=== PATIENT | male | born 1955 | race Caucasian/White ===

== ENCOUNTER → 2017-07-26 08:42 | Outpatient (CLI) | payer OTHER, SELFPAY | PROVIDERS: PCP Family Medicine; Visit Provider Specialist | DX: N40.1 Benign prostatic hyperplasia with lower urinary tract symptoms (principal) | CPT/HCPCS: 36415; 84153 ==

== ENCOUNTER → 2018-10-06 07:22 | Outpatient (CLI) | payer OTHER, SELFPAY ==
[2018-10-06 09:17] LABS: Prostate Specific Antigen 1.21 ng/mL (0.10-4.00)
== END ==
PROVIDERS: PCP Family Medicine; Visit Provider Specialist
DX: N40.1 Benign prostatic hyperplasia with lower urinary tract symptoms (principal)
CPT/HCPCS: 36415; 84153

== ENCOUNTER → 2018-11-21 08:17 | Outpatient (CLI) | payer OTHER, SELFPAY ==
[2018-11-21 08:59] LABS: Hemoglobin A1C% w Est Avg Glu 5.7 % (4.0-6.0)
[2018-11-21 09:06] LABS: Alanine Aminotransferase 26 IU/L (21-72); Albumin 4.4 g/dL (3.5-5.0); Albumin Globulin Ratio 1.5 (1.0-2.8); Alkaline Phosphatase 52 U/L (38-126); Aspartate Aminotransferase 23 IU/L (17-59); BUN Creatinine Ratio 16.9 (6-22); Bilirubin Total 0.7 mg/dL (0.2-1.3); Blood Urea Nitrogen 22 mg/dL (9-20); Calcium 9.7 mg/dL (8.4-10.2); Carbon Dioxide 29 mmol/L (22-32); Chloride 102 mmol/L (98-107); Cholesterol 247 mg/dL (140-199); Estimated Glomerular Filt Rate 55.9 mL/min (>60); Globulin 2.9 g/dL (1.7-4.1); Glucose 120 mg/dL (80-110); HDL Cholesterol 75 mg/dL (40-60); HEMOLYSIS < 15 (0-50); LDL Cholesterol Calculated 150 mg/dL (<100); Potassium 4.9 mmol/L (3.4-5.1); Sodium 140 mmol/L (137-145); Total Protein 7.3 g/dL (6.3-8.2); Triglycerides 109 mg/dL (35-150); VLDL Cholesterol Calculated 22 mg/dL (2-30)
== END ==
PROVIDERS: PCP Family Medicine; Visit Provider Family Medicine
DX: E11.65 Type 2 diabetes mellitus with hyperglycemia (principal)
CPT/HCPCS: 36415; 80053; 80061; 83036

== ENCOUNTER → 2019-03-10 07:11 | Outpatient (CLI) | payer OTHER, SELFPAY ==
[2019-03-10 08:31] LABS: Albumin 4.3 g/dL (3.5-5.0)
[2019-03-10 09:03] LABS: Prostate Specific Antigen 1.51 ng/mL (0.10-4.00)
[2019-03-10 09:05] LABS: Testosterone 386 ng/dL (71.8-623)
[2019-03-13 07:12] LABS: Sex Hormone Binding Globulin 52 nmol/L (22-77)
[2019-03-17 18:37] LABS: Testosterone, Free 1.33 ng/dL
== END ==
PROVIDERS: PCP Family Medicine; Visit Provider Specialist
DX: R68.82 Decreased libido (principal)
CPT/HCPCS: 36415; 82040; 84153; 84270; 84402; 84403

== ENCOUNTER → 2019-12-06 06:53 | Outpatient (CLI) | payer OTHER, SELFPAY ==
[2019-12-06 08:21] LABS: Add Manual Diff / Slide Review NO; Basophils Absolute Auto 100 /uL (0-100); Eosinophils Absolute Auto 100 /uL (0-450); Eosinophils Percent Auto 2.1 % (2-4); Hematocrit 44.1 % (41-53); Hemoglobin 14.8 g/dL (13.5-17.5); Lymphocytes Absolute Auto 2200 /uL (1100-4500); Lymphocytes Percent Auto 33.7 % (25-40); Mean Corpuscular HGB Conc 33.7 % (30-36); Mean Corpuscular Hemoglobin 30.3 PG (26-34); Monocytes Absolute Auto 500 /uL (0-900); Monocytes Percent Auto 8.3 % (3-14); Neutrophils Absolute Auto 3600 /uL (1500-7000); Neutrophils Percent Auto 54.9 % (50-75); Platelet Count 235 X10^3/uL (150-400); Red Cell Distribution Width 14.6 % (11.6-14.8); White Blood Cell Count 6.5 X10^3/uL (4.5-11.0)
[2019-12-06 08:41] LABS: Alanine Aminotransferase 25 IU/L (<50); Albumin 4.3 g/dL (3.5-5.0); Albumin Globulin Ratio 1.3 (1.0-2.8); Alkaline Phosphatase 46 U/L (38-126); Aspartate Aminotransferase 28 IU/L (17-59); BUN Creatinine Ratio 20.8 (6-22); Bilirubin Total 0.7 mg/dL (0.2-1.3); Blood Urea Nitrogen 22 mg/dL (9-20); Calcium 9.3 mg/dL (8.4-10.2); Carbon Dioxide 29 mmol/L (22-32); Chloride 104 mmol/L (98-107); Cholesterol 229 mg/dL (140-199); Estimated Glomerular Filt Rate > 60.0 mL/min (>60); Globulin 3.2 g/dL (1.7-4.1); Glucose 112 mg/dL (80-110); HDL Cholesterol 81 mg/dL (40-60); HEMOLYSIS < 15 (0-50); LDL Cholesterol Calculated 126 mg/dL (<100); Potassium 3.9 mmol/L (3.4-5.1); Sodium 139 mmol/L (137-145); Total Protein 7.5 g/dL (6.3-8.2); Triglycerides 112 mg/dL (35-150)
[2019-12-06 08:43] LABS: Hemoglobin A1C% w Est Avg Glu 6.3 % (4.0-6.0)
[2019-12-06 09:12] LABS: Prostate Specific Antigen 2.08 ng/mL (0.10-4.00)
== END ==
PROVIDERS: PCP Internal Medicine; Referring Provider Internal Medicine; Visit Provider Internal Medicine
DX: E78.2 Mixed hyperlipidemia (principal); N40.1 Benign prostatic hyperplasia with lower urinary tract symptoms; E11.9 Type 2 diabetes mellitus without complications
CPT/HCPCS: 36415; 80053; 80061; 83036; 84153; 85025

== ENCOUNTER → 2020-05-21 06:55 | Outpatient (CLI) | payer OTHER, SELFPAY ==
[2020-05-21 08:53] LABS: Creatinine Urine Random 127.1 mg/dL
[2020-05-21 08:57] LABS: Microalbumi Creatinin Ratio Ur 5.5 ug/mg CR (<30); Microalbumin Urine Random 0.7 mg/dL (0-1.6)
[2020-05-21 09:07] LABS: Hemoglobin A1C% w Est Avg Glu 6.2 % (4.0-6.0)
== END ==
PROVIDERS: PCP Internal Medicine; Referring Provider Internal Medicine; Visit Provider Internal Medicine
DX: E11.9 Type 2 diabetes mellitus without complications (principal); R03.0 Elevated blood-pressure reading, without diagnosis of hypertension
CPT/HCPCS: 36415; 82043; 82570; 83036

== ENCOUNTER → 2020-06-11 07:00 | Outpatient (CLI) | payer OTHER, SELFPAY ==
[2020-06-11 09:32] LABS: Prostate Specific Antigen 2.09 ng/mL (0.10-4.00)
== END ==
PROVIDERS: PCP Internal Medicine; Referring Provider Specialist; Visit Provider Specialist
DX: N40.0 Benign prostatic hyperplasia without lower urinary tract symptoms (principal)
CPT/HCPCS: 36415; 84153

== ENCOUNTER → 2021-02-17 06:58 | Outpatient (CLI) | payer OTHER, SELFPAY ==
[2021-02-17 09:54] LABS: Prostate Specific Antigen 2.17 ng/mL (0.10-4.00)
== END ==
PROVIDERS: PCP Internal Medicine; Referring Provider Specialist; Visit Provider Specialist
DX: N13.8 Other obstructive and reflux uropathy (principal); N40.1 Benign prostatic hyperplasia with lower urinary tract symptoms
CPT/HCPCS: 36415; 84153

== ENCOUNTER → 2021-11-04 10:39 | Outpatient (CLI) | payer OTHER, SELFPAY ==
--- NOTE | 2021-11-04 10:42 | DI.RAD.S_ITS ---
PROCEDURE: XR CERVICAL SPINE 2V OR 3V INDICATIONS: BACK PAIN TECHNIQUE: Three views of the cervical spine were acquired. COMPARISON: [facility], , C-SPINE WITHOUT CONTRAST, 11/02/2012, 17:38. FINDINGS: Bones: No acute fractures or dislocations to the T1 level. The lateral masses of C1 appear intact on the odontoid view. No suspicious bony lesions. Multilevel disc space narrowing degenerative endplate changes are seen that are most prominent at the C6-7 disc space level. Multilevel uncovertebral joint and facet hypertrophy. Soft tissues: No prevertebral soft tissue swelling. IMPRESSION: Multilevel spondylosis. Further evaluation could be considered with cervical spine MRI if indicated clinically. Dictated by: Jason Barillas M.D. on 11/04/2021 at 12:44 Approved by: Jason Barillas M.D. on 11/04/2021 at 12:46
--- NOTE | 2021-11-04 10:53 | DI.RAD.S_ITS ---
PROCEDURE: XR THORACIC SPINE 3V INDICATIONS: BACK PAIN TECHNIQUE: 3 views of the thoracic spine were acquired. COMPARISON: None. FINDINGS: Bones: No acute fractures or dislocations. No suspicious bony lesions. 12 pairs of ribs are noted, and appear intact where visualized. Multilevel disc space narrowing degenerative endplate changes. Soft tissues: No paravertebral stripe thickening. Surgical clips are seen in the right upper quadrant of the abdomen. IMPRESSION: Mild multilevel spondylosis. No acute osseous abnormality. Dictated by: Jason Barillas M.D. on 11/04/2021 at 12:46 Approved by: Jason Barillas M.D. on 11/04/2021 at 12:47
== END ==
PROVIDERS: PCP Internal Medicine; Referring Provider Internal Medicine; Visit Provider Internal Medicine
DX: M54.6 Pain in thoracic spine (principal); M47.814 Spondylosis without myelopathy or radiculopathy, thoracic region; M47.812 Spondylosis without myelopathy or radiculopathy, cervical region
CPT/HCPCS: 72040; 72072

== ENCOUNTER → 2022-02-19 07:37 | Outpatient (CLI) | payer OTHER, SELFPAY ==
[2022-02-19 10:21] LABS: Prostate Specific Antigen 2.18 ng/mL (0.10-4.00)
== END ==
PROVIDERS: PCP Internal Medicine; Referring Provider Specialist; Visit Provider Specialist
DX: N13.8 Other obstructive and reflux uropathy (principal); N40.1 Benign prostatic hyperplasia with lower urinary tract symptoms
CPT/HCPCS: 36415; 84153

== ENCOUNTER 2022-03-12 11:38 | Emergency (ER) | payer OTHER, SELFPAY ==
[2022-03-12] VITALS (11 sets, daily range): BP systolic 158–193; BP diastolic 75–86; PULSE 48–76; RESP 14–20; O2SAT 91–100; BMI 29.7
--- NOTE | 2022-03-12 11:40 | DI.RAD.S_ITS ---
PROCEDURE: XR CHEST 1V INDICATIONS: chest pain TECHNIQUE: One view of the chest was acquired. COMPARISON: [facility], , CHEST 2 VIEW, 11/17/2011, 7:37. FINDINGS: Surgical changes and devices: None. Lungs and pleura: Lungs are clear. No pleural effusions or pneumothorax. Mediastinum: Mediastinal contours appear normal. Heart size is normal. Bones and chest wall: No suspicious bony lesions. Overlying soft tissues appear unremarkable. IMPRESSION: No acute cardiopulmonary disease. Dictated by: Rosibel Medellin M.D. on 03/12/2022 at 11:39 Approved by: Rosibel Medellin M.D. on 03/12/2022 at 11:40
[2022-03-12 12:00] LABS: Add Manual Diff / Slide Review NO; Basophils Absolute Auto 0 /uL (0-100); Basophils Percent Auto 0.7 % (0-2); Eosinophils Absolute Auto 100 /uL (0-450); Eosinophils Percent Auto 2.2 % (2-4); Hematocrit 43.8 % (41-53); Hemoglobin 14.5 g/dL (13.5-17.5); Lymphocytes Absolute Auto 2100 /uL (1100-4500); Mean Corpuscular HGB Conc 33.1 % (30-36); Mean Corpuscular Hemoglobin 29.9 PG (26-34); Mean Corpuscular Volume 90.4 fL (80-100); Monocytes Absolute Auto 600 /uL (0-900); Monocytes Percent Auto 8.8 % (3-14); Neutrophils Absolute Auto 3400 /uL (1500-7000); Neutrophils Percent Auto 54.3 % (50-75); Platelet Count 239 X10^3/uL (150-400); Red Blood Cell Count 4.84 X10^6/uL (4.5-5.9); Red Cell Distribution Width 14.5 % (11.6-14.8); White Blood Cell Count 6.3 X10^3/uL (4.5-11.0)
[2022-03-12 12:10] LABS: Alanine Aminotransferase 21 IU/L (<50); Albumin 4.3 g/dL (3.5-5.0); Albumin Globulin Ratio 1.2 (1.0-2.8); Alkaline Phosphatase 44 U/L (38-126); Aspartate Aminotransferase 22 IU/L (17-59); BUN Creatinine Ratio 18.5 (6-22); Bilirubin Total 0.6 mg/dL (0.2-1.3); Blood Urea Nitrogen 20 mg/dL (9-20); Calcium 8.9 mg/dL (8.4-10.2); Carbon Dioxide 26 mmol/L (22-32); Chloride 104 mmol/L (98-107); Creatine Kinase 114 U/L (55-170); Estimated Glomerular Filt Rate > 60 mL/min (>60); Globulin 3.5 g/dL (1.7-4.1); Glucose 113 mg/dL (80-110); Lipase 138 U/L (23-300); Magnesium 1.7 mg/dL (1.6-2.3); Potassium 3.9 mmol/L (3.4-5.1); Sodium 140 mmol/L (137-145); Total Protein 7.8 g/dL (6.3-8.2)
[2022-03-12 12:21] LABS: Troponin I < 0.012 ng/mL (0.01-0.034)
[2022-03-12 12:23] LABS: Prothrombin Time 11.4 SECONDS (10.1-12.7)
[2022-03-12 12:26] LABS: PTT Partial Thromboplastin Tim 28 SECONDS (26-36)
[2022-03-12 12:37] LABS: CKMB % Relative Index 0.9 % (1.5-5.0); Creatine Kinase MB 1.06 ng/mL (<2.37); HEMOLYSIS 21 (0-50)
[2022-03-12 14:02] LABS: D Dimer 493 ng/ml (<500)
[2022-03-12 14:09] LABS: NT-proBNP (BNP-Adult 18+) 82 pg/mL (<125)
[2022-03-12 14:34] LABS: Troponin I < 0.012 ng/mL (0.01-0.034)
--- NOTE | 2022-03-12 16:51 | ED_ITS ---
HPI - Chest Pain General Chief Complaint: Chest Pain Stated Complaint: chest pain Time Seen by Provider: 03/12/22 13:42 Source: patient Mode of arrival: Ambulatory Limitations: no limitations History of Present Illness HPI narrative: This is a 67-year-old male with history of hypertension, dyslipidemia, BPH and prior pulmonary emboli, patient used to have an IVC filter but has since been removed and is not currently on any anticoagulation. Patient states this morning about 1125 he is walking out of his bedroom when he had a sudden sharp pain on the left side of his back from back to front that he states was quite intense. It is not resolved but has significantly improved only localized to that area. Does not radiate to the neck arm belly or elsewhere. Patient denies any shortness of breath, no lightheadedness or passing out, no nausea or vomiting, no issues with bowel movements, urination. No rash or skin changes no blisters. Patient states he has not appreciate any exacerbating or alleviating factors. He defers anything for pain. He is a history of pulmonary in the past, states he would slipped and fallen developed a DVT and subsequent pulmonary emboli. He had 6-7 pulmonary emboli had a IVC filter placed and was anticoagulated for about 5-6 months, treatment occurred at [place] in [facility]. Subsequently was stopped he did have vein stripping in his legs and is no longer anticoagulated. He takes losartan, fenofibrate, tamsulosin. He is had prior cholecystectomy and elbow and shoulder surgery. Patient states he has not had any new swelling legs, no recent long-distance travel or injuries that he appreciates. No activities that would have caused his pain. Related Data Home Medications Medication Instructions Recorded Confirmed fenofibrate nanocrystallized 48 mg 48 mg PO DAILY 03/15/20 02/23/22 tablet multivitamin 1 tab PO DAILY 03/15/20 02/23/22 omega-3-dha 120 mg-epa 180 mg-fish cap PO 03/15/20 02/23/22 oil-vitamin D3 1,000 unit capsule losartan 50 mg tablet 50 mg PO DAILY 02/20/21 02/23/22 Previous Rx's Medication Instructions Recorded tamsulosin 0.4 mg capsule (Flomax) 0.4 mg PO QDAY #90 caps 02/28/21 Allergies Allergy/AdvReac Type Severity Reaction Status Date / Time Xehorcg-GOU-MuQ Reductase Allergy Severe SLURRED Verified 03/12/22 11:41 Inhibitor SPEECH, [RKNLCHE-[id number] REDUCTASE OUT OF IT INHIBITOR] hydrocodone [HYDROCODONE] AdvReac Intermediate NAUSEA Verified 03/12/22 11:41 Review of Systems Review of Systems ROS Unobtainable: All systems reviewed & are unremarkable except as noted in HPI and below Patient History Medical History BPH w urinary obs/LUTS 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 Surgical History History of appendectomy History of cholecystectomy History of circumcision History of elbow surgery History of shoulder surgery Family History Mother Cancer Stroke Coronary artery disease Diabetes mellitus Hypertension Inflammatory bowel disease Father Hypertension Social History marital status: number of children: 3 occupational status: employed Smoking Status: Never smoker alcohol intake: never caffeine: Yes Smoking Status: Never smoker alcohol intake frequency: holidays/special occasions only Substance Use Type: does not use Exam Narrative Exam Narrative: GENERAL: Alert and oriented x three, male in mild distress. HEENT: Head normocephalic, atraumatic, EOMI, pupils reactive, face symmetric, moist mucous membranes NECK: Supple, full range of motion CARDIOVASCULAR: Regular rate and rhythm without murmurs, rubs or gallops. No reproducible chest pain. No swelling of extremities. RESPIRATORY: Breath sounds equal bilaterally, no wheezes rales or rhonchi. No tachypnea, no accessory muscle use. ABDOMEN: Soft, nontender. Normoactive bowel sounds all 4 quadrants. No guarding or rebound, rigidity, no mass : No CVA tenderness BACK: No cervical, thoracic or lumbar vertebral point tenderness. Patient has normal range of motion. EXTREMITIES: Normal range of motion, no clubbing or edema. Neurovascularly intact NEUROLOGICAL: Cranial nerves II through XII grossly intact. Moving all extremities SKIN: Warm, dry, no petechiae, no rashes or lesions. Initial Vital Signs Initial Vital Signs: Vital Signs Pulse Rate 76 03/12/22 11:41 Respiratory Rate 15 03/12/22 11:41 Blood Pressure 193/86 H 03/12/22 11:41 Pulse Oximetry 99 03/12/22 11:41 Oxygen Delivery Method 03/12/22 11:41 Scores HEART Score Heart Score history: Slightly Suspicious Heart Score EKG: Normal Heart Score Age: > or = 65 years old Heart Score risk factors: 1-2 risk factors Heart Score troponin: < or = to normal limit Heart Score Total: 3 Wells' Criteria for PE Clinical signs and symptoms of DVT: No PE is #1 Dx or equally likely: Yes Heart rate > 100: No Immobilization at least 3 days or surg in previous 4 weeks: No History of PE or DVT: Yes Hemoptysis: No Malignancy w/Treatment within 6 months or palliative: No Wells' PE Score total: 4.5 Course Orders Ordered: ED Orders 03/12/22 11:40 XR chest 1V Stat 03/12/22 11:44 Complete Blood Count AUTO DIFF Stat Comprehensive Metabolic Panel Stat Lipase Stat Magnesium Stat Partial Thromboplastin Time Stat Prothrombin Time INR Stat Troponin & CK Cardiac Panel Stat 03/12/22 11:46 EKG-12 Lead Stat 03/12/22 11:49 BNP [NT-proBNP (BNP-Adult 18+)] Stat D Dimer Stat 03/12/22 14:05 Trop I [Troponin I] Stat 03/12/22 16:13 EKG-12 Lead Stat 03/12/22 17:06 CT angio chest PE protocol Stat Vital Signs Vital signs: Vital Signs - 8 hr 03/12/22 11:41 03/12/22 16:25 03/12/22 16:26 Pulse Rate 76 56 L 56 L Respiratory Rate 15 Blood Pressure 193/86 H Pulse Oximetry 99 99 99 Oxygen Delivery Method Room Air 03/12/22 16:26 03/12/22 16:30 03/12/22 16:30 Pulse Rate 48 L Respiratory Rate 15 Blood Pressure 166/76 H 158/75 H Pulse Oximetry 99 Oxygen Delivery Method Room Air 03/12/22 17:00 03/12/22 17:01 03/12/22 17:01 Pulse Rate 53 L 54 L Respiratory Rate 18 20 Blood Pressure 187/86 H Pulse Oximetry 99 99 Oxygen Delivery Method 03/12/22 17:30 03/12/22 18:00 03/12/22 18:30 Pulse Rate 57 L 51 L 48 L Respiratory Rate 20 17 14 Blood Pressure Pulse Oximetry 96 97 97 Oxygen Delivery Method 03/12/22 19:02 03/12/22 19:03 03/12/22 19:03 Pulse Rate 50 L Respiratory Rate Blood Pressure 183/80 H Pulse Oximetry 91 100 Oxygen Delivery Method Room Air MDM - Chest Pain Lab Data 03/12/22 11:44 03/12/22 11:44 Labs: Lab Results 03/12/22 03/12/22 03/12/22 Range/Units 11:44 11:44 11:44 WBC 6.3 (4.5-11.0) X10^3/uL RBC 4.84 (4.5-5.9) X10^6/uL Hgb 14.5 (13.5-17.5) g/dL Hct 43.8 (41-53) % MCV 90.4 (80-100) fL MCH 29.9 (26-34) PG MCHC 33.1 (30-36) % RDW 14.5 (11.6-14.8) % Plt Count 239 (150-400) X10^3/uL Neut % (Auto) 54.3 (50-75) % Lymph % (Auto) 34.0 (25-40) % [facility] % (Auto) 8.8 (3-14) % Eos % (Auto) 2.2 (2-4) % Baso % (Auto) 0.7 (0-2) % Neut # (Auto) 3400 (3365-6290) /uL Lymph # (Auto) 2100 (1288-3110) /uL [facility] # (Auto) 600 (0-900) /uL Eos # (Auto) 100 (0-450) /uL Baso # (Auto) 0 (0-100) /uL PT 11.4 (10.1-12.7) SECONDS INR 1.0 (0.9-1.3) APTT 28 (26-36) SECONDS D-Dimer (<500) ng/ml Sodium 140 (137-145) mmol/L Potassium 3.9 (3.4-5.1) mmol/L Chloride 104 (98-107) mmol/L Carbon Dioxide 26 (22-32) mmol/L BUN 20 (9-20) mg/dL Creatinine 1.08 (0.66-1.25) mg/dL Estimated GFR > 60 (>60) mL/min BUN/Creatinine Ratio 18.5 (6-22) Glucose 113 H (80-110) mg/dL Calcium 8.9 (8.4-10.2) mg/dL Magnesium 1.7 (1.6-2.3) mg/dL Total Bilirubin 0.6 (0.2-1.3) mg/dL AST 22 (17-59) IU/L ALT 21 (<50) IU/L Alkaline Phosphatase 44 (38-126) U/L Total Creatine Kinase 114 (55-170) U/L CK-MB (CK-2) 1.06 (<2.37) ng/mL CK-MB (CK-2) Rel Index 0.9 L (1.5-5.0) % Troponin I < 0.012 (0.01-0.034) ng/mL NT-Pro-B Natriuret Pep (<125) pg/mL Total Protein 7.8 (6.3-8.2) g/dL Albumin 4.3 (3.5-5.0) g/dL Globulin 3.5 (1.7-4.1) g/dL Albumin/Globulin Ratio 1.2 (1.0-2.8) Lipase 138 (23-300) U/L 03/12/22 03/12/22 03/12/22 Range/Units 11:49 11:49 14:05 WBC (4.5-11.0) X10^3/uL RBC (4.5-5.9) X10^6/uL Hgb (13.5-17.5) g/dL Hct (41-53) % MCV (80-100) fL MCH (26-34) PG MCHC (30-36) % RDW (11.6-14.8) % Plt Count (150-400) X10^3/uL Neut % (Auto) (50-75) % Lymph % (Auto) (25-40) % [facility] % (Auto) (3-14) % Eos % (Auto) (2-4) % Baso % (Auto) (0-2) % Neut # (Auto) (3314-8742) /uL Lymph # (Auto) (7688-5130) /uL [facility] # (Auto) (0-900) /uL Eos # (Auto) (0-450) /uL Baso # (Auto) (0-100) /uL PT (10.1-12.7) SECONDS INR (0.9-1.3) APTT (26-36) SECONDS D-Dimer 493 (<500) ng/ml Sodium (137-145) mmol/L Potassium (3.4-5.1) mmol/L Chloride (98-107) mmol/L Carbon Dioxide (22-32) mmol/L BUN (9-20) mg/dL Creatinine (0.66-1.25) mg/dL Estimated GFR (>60) mL/min BUN/Creatinine Ratio (6-22) Glucose (80-110) mg/dL Calcium (8.4-10.2) mg/dL Magnesium (1.6-2.3) mg/dL Total Bilirubin (0.2-1.3) mg/dL AST (17-59) IU/L ALT (<50) IU/L Alkaline Phosphatase (38-126) U/L Total Creatine Kinase (55-170) U/L CK-MB (CK-2) (<2.37) ng/mL CK-MB (CK-2) Rel Index (1.5-5.0) % Troponin I < 0.012 (0.01-0.034) ng/mL NT-Pro-B Natriuret Pep 82 (<125) pg/mL Total Protein (6.3-8.2) g/dL Albumin (3.5-5.0) g/dL Globulin (1.7-4.1) g/dL Albumin/Globulin Ratio (1.0-2.8) Lipase (23-300) U/L Imaging Data Chest x-ray: Radiologist's Impression: [address] [address] XRay Report Signed Patient: Stuart Crandall MR#: [id number] : 1955 Acct:[id number] Age/Sex: 67 / M Date of Service: 03/12/22 Loc: ED Accession Number: [id number] ?? Procedure: XR chest 1V Ordering Provider: Rocio Harris D.O. PROCEDURE:? XR CHEST 1V ? INDICATIONS:? chest pain ? TECHNIQUE:? One view of the chest was acquired.? ? COMPARISON:? [facility], CR, CHEST 2 VIEW, 11/17/2011, 7:37. ? FINDINGS:? ? Surgical changes and devices:? None.? ? Lungs and pleura:? Lungs are clear.? No pleural effusions or pneumothorax.? ? Mediastinum:? Mediastinal contours appear normal.? Heart size is normal.? ? Bones and chest wall:? No suspicious bony lesions.? Overlying soft tissues appear unremarkable.? ? IMPRESSION:? No acute cardiopulmonary disease.? ? ? Dictated by: Rosibel Medellin M.D. on 03/12/2022 at 11:39 ? ? Approved by: Rosibel Medellin M.D. on 03/12/2022 at 11:40?? ECG Data Attestation: I personally reviewed and interpreted this ECG as follows: Prior ECG tracings: available for review Interpretation: EKG 1. Rate of 64 TX 196 QRS of 94 QTC 422. Patient has PVC. No acute ST elevation depression noted. EKG 2., sinus bradycardia with occasional PVC. Rate of 53 TX 190, QRS of [address]TC [address] No acute ST elevation depression noted. Patient does not have any change MDM Narrative Medical decision making narrative: This is a 67-year-old male with left-sided chest pain radiating from his back to front. No clear exacerbating alleviating factors. Still present but significant fluid. Patient has PVCs intermittently but no other significant ST changes, chest x-ray is negative, CBC, CMP, troponin, coags and lipase are all negative. Patient had troponin repeated a 2nd time and repeat EKG without acute changes. Discussed with patient sounds like he had a provoking incident for his pulmonary emboli and past discussed risks versus benefit with negative D-dimer, patient is not tachycardic is hypertensive, not hypoxic and after discussion decision was made to go ahead and CT chest with angio. This shows no pulmonary emboli, mild bilateral lower lung interstitial/alveolar changes consistent with interstitial edema and early pulmonary edema, no pleural effusions. Heart is upper size limits of normal without pericardial effusion. Lymphadenopathy. Patient has some moderate bridging endplate osteophytes in mid lower spine. Patient has a large exophytic cyst in the left kidney, patient states he is aware of the cyst on his kidney. Reviewed all the rest of his findings. Dis cussed would be appropriate echo possibly even stress testing to follow-up there are issues people can develop such as pulmonary hypertension post pulmonary emboli, return precautions were discussed. All questions answered. Discharge Plan Departure Patient Disposition: Home Clinical Impression: Chest pain, Cyst of left kidney Instructions: DI for Chest Pain Activity Restrictions/Additional Instructions: Follow-up with your physician for recheck, call tomorrow to ask about follow up and to have an ECHO and/or stress testing ordered. Imaging today does not show any blood clots. There is some possible interstitial edema but you were labs do not reflect this today your heart enzymes and BNP are negative. Please continue your home medications as prescribed. Please return for new or worsening chest pain, shortness of breath, fevers, new swelling of extremities, lightheadedness or passing out or other new or concerning changes. Prescriptions: No Action fenofibrate nanocrystallized 48 mg tablet 48 mg PO DAILY multivitamin Tablet 1 tab PO DAILY [id number]-fish oil-vit D3 120 mg-180 mg -1,000 unit capsule PO tamsulosin [Flomax] 0.4 mg capsule 0.4 mg PO QDAY Qty: 90 3RF losartan 50 mg tablet 50 mg PO DAILY Referrals: Dillon Barker MD [Primary Care Provider] - Stand Alone Forms: Patient Portal/API
--- NOTE | 2022-03-12 17:06 | DI.CT.S_ITS ---
PROCEDURE: CT ANGIO CHEST PE PROTOCOL INDICATIONS: left chest pain, radiates back to front, hx pe (remote) TECHNIQUE: After the administration of intravenous contrast, 2 mm thick sections acquired from the pulmonary apices to the posterior costophrenic angles. 3-dimensional maximum intensity projection (MIP) coronal and sagittal reformats were then acquired through the thorax. For radiation dose reduction, the following was used: automated exposure control, adjustment of mA and/or kV according to patient size. COMPARISON: [facility], CR, XR CHEST 1V, 03/12/2022, 11:39. FINDINGS: Image quality: Excellent. Pulmonary arteries: Pulmonary arteries are normal in size, and demonstrate no intraluminal filling defects to suggest central pulmonary embolism. Lungs and pleura: Mild hazy patchy alveolar opacities dependently involving both lower lobes, and mild septal thickening at both lung bases. Central and peripheral airways are patent. No dense consolidations or pleural effusions. Mediastinum: Heart size is at the upper limits of normal, without pericardial effusion. No mediastinal or hilar adenopathy. Thoracic aorta is normal in caliber and enhancement. Esophagus is normal in caliber, without hiatal hernia. Bones and chest wall: No suspicious bony lesions. Moderate bridging endplate osteophytes in the mid to lower thoracic spine. Ribs and thoracic spine appear intact throughout. Thyroid gland is normal. No axillary or supraclavicular adenopathy. Abdomen: The visible upper abdomen demonstrates cholecystectomy changes and a large exophytic cyst arising from the upper pole of the left kidney measuring about 9.8 cm. Upper abdominal organs are otherwise normal to the extent they are visualized. IMPRESSION: 1. Mild bilateral lower lung interstitial and alveolar changes suggesting interstitial edema and early pulmonary edema. No pleural effusions. 2. Heart size at the upper limits of normal. Please correlate with BNP. Dictated by: Rosibel Medellin M.D. on 03/12/2022 at 17:34 Approved by: Rosibel Medellin M.D. on 03/12/2022 at 17:39
== END 2022-03-12 19:08 | disposition home or self-care (01) ==
PROVIDERS: Emergency Provider Emergency Medicine; PCP Internal Medicine
DX: R07.9 Chest pain, unspecified (principal); N28.1 Cyst of kidney, acquired
CPT/HCPCS: 71045; 71275; 80053; 82550; 82553; 83690; 83735; 83880; 84484; 85025; 85379; 85610; 85730; 93005; 99282; 99284

== ENCOUNTER → 2022-11-11 07:10 | Outpatient (CLI) | payer OTHER, SELFPAY ==
--- NOTE | 2022-11-11 | DI.MRI.S_ITS ---
PROCEDURE: MR KNEE LT WO CON INDICATIONS: LEFT KNEE PAIN TECHNIQUE: Noncontrast sagittal PD fast spin echo and T2 fast spin echo with fat saturation, sagittal 3-D FLASH with fat saturation; coronal T1 spin echo and PD fast spin echo with fat saturation, and axial PD fast spin echo with fat saturation through the knee. COMPARISON: [facility], CR, XR KNEE 1 OR 2 VIEWS LEFT, 10/14/2022, 10:39. FINDINGS: Image quality: Excellent. Menisci: Medial and lateral meniscal extrusions. There is complex degenerative tear of the body of the medial meniscus. There may be a small radial tear of the posterior horn of the medial meniscus. There is intrasubstance degeneration of the posterior horn of the medial meniscus. Suspect tear of the free edge of the body of the lateral meniscus.The meniscal root ligaments are intact. Cruciate ligaments: The anterior and posterior cruciate ligaments appear intact. Medial structures: Chronic grade 1 sprain of the medial collateral ligament. Thickening of the semimembranosus tendon insertions, consistent with chronic partial tear/sprain. The meniscocapsular junction is intact without meniscocapsular separation. Visualized portions of the pes anserinus tendons appear normal. No abnormal bursal fluid. Lateral structures: The lateral collateral ligament, long and short heads of the biceps femoris tendon appear intact. The popliteus tendon appears normal. Iliotibial band appears normal. Anterior structures: The quadriceps and patellar tendons appear intact. Low-grade quadriceps tendinitis and patellar tendinitis. Patellar alignment is normal. No femoral trochlear dysplasia or ventral trochlear prominence. No edema in the infrapatellar fat pad. Bones and cartilage: No bone marrow contusions or fractures. The cartilage of the medial and lateral femorotibial compartments, as well as the patellofemoral compartment, appears normal in thickness. Joint space: There is small knee joint fluid. There is a moderate sized, multilocular Frazier's cyst. Normal appearing synovial plicae are incidentally noted. IMPRESSION: 1. Medial meniscal tear. 2. Question tear involving the free edge of the body of the lateral meniscus. 3. Chronic low-grade partial tear/sprain of MCL and the semimembranous tendon insertions. 4. Mild quadriceps tendinitis and patellar tendinitis. 5. A moderate-sized multilocular Frazier's cyst. 6. Small knee joint effusion. Dictated by: Gustavo Jc M.D. on 11/11/2022 at 9:06 Approved by: Gustavo Jc M.D. on 11/11/2022 at 9:20
== END ==
PROVIDERS: PCP Physician Assistant; Referring Provider Orthopaedic Surgery Foot and Ankle Surgery; Visit Provider Orthopaedic Surgery Foot and Ankle Surgery
DX: S83.242A Other tear of medial meniscus, current injury, left knee, initial encounter (principal); S83.412A Sprain of medial collateral ligament of left knee, initial encounter; M76.52 Patellar tendinitis, left knee; M25.462 Effusion, left knee
CPT/HCPCS: 73721

== ENCOUNTER → 2023-03-24 06:59 | Outpatient (CLI) | payer OTHER, SELFPAY ==
[2023-03-24 09:05] LABS: Prostate Specific Antigen 2.79 ng/mL (0.10-4.00)
== END ==
PROVIDERS: PCP Physician Assistant; Referring Provider Specialist; Visit Provider Specialist
DX: N40.1 Benign prostatic hyperplasia with lower urinary tract symptoms (principal); N13.8 Other obstructive and reflux uropathy
CPT/HCPCS: 36415; 84153

== ENCOUNTER → 2023-07-23 14:48 | Outpatient (CLI) | payer OTHER, SELFPAY ==
[2023-07-23 16:28] LABS: Prostate Specific Antigen 2.53 ng/mL (0.10-4.00)
== END ==
PROVIDERS: PCP Physician Assistant; Referring Provider Specialist; Visit Provider Specialist
DX: R97.20 Elevated prostate specific antigen [PSA] (principal)
CPT/HCPCS: 36415; 84153

== ENCOUNTER → 2023-10-16 09:27 | Outpatient (CLI) | payer OTHER, SELFPAY ==
[2023-10-16 11:26] LABS: Prostate Specific Antigen 2.46 ng/mL (0.10-4.00)
== END ==
PROVIDERS: PCP Physician Assistant; Referring Provider Specialist; Visit Provider Specialist
DX: N40.1 Benign prostatic hyperplasia with lower urinary tract symptoms (principal); N13.8 Other obstructive and reflux uropathy
CPT/HCPCS: 36415; 84153

== ENCOUNTER 2023-12-28 08:05 | Day surgery (SDC) | payer OTHER, SELFPAY ==
[2023-12-23 11:26] VITALS: BMI 30.3
[2023-12-28] VITALS (8 sets, daily range): BP systolic 125–158; BP diastolic 64–80; PULSE 57–571; RESP 11–16; TEMP 36.3–36.6; O2SAT 96–99; BMI 29.7
--- NOTE | 2023-12-28 | PATH_ITS ---
[facility] Accession Number: [id number] No. of containers..01 Tissue . 01 Material submitted: . prostate - PROSTATE CHIPS . 01 Diagnosis: PROSTATE CHIPS, TRANSURETHRAL PROSTATE TISSUE RESECTION: Benign prostatic parenchyma, weight 1 gram, with nodular stromal and glandular hypertrophy. Scant benign urothelial mucosa with cautery artifact. Negative for high-grade prostatic intraepithelial neoplasia and invasive malignancy. [facility] 12/30/2023 1415 Local . 01 Electronically signed: . Costa Miller MD, Pathologist NPI- [id number] . 01 Gross description: . Received in formalin with two patient identifiers and prostate chips, are multiple maloney soft tissue fragments with a scant amount of hemorrhagic material weighing approximately 1 gram aggregating to 2.1 x 1.3 x 0.8 cm. Submitted entirely in cassette A1. ([id number]) /SETH 12/29/2023 0829 Local . 01 Pathologist provided ICD-10: N40.1 . 01 CPT . 345268 Specimen Comment: A courtesy copy of this report has been sent to [phone] Performed at: [address] [id number] MD Wellington Ray MD Phone: [phone]
[2023-12-28] MEDS: LACTATED RINGERS 1,000 ML 21 ML IV (09:30)
[2023-12-28] MEDS: ACETAMINOPHEN 325 MG TABLET 975 MG PO (09:31)
--- NOTE | 2023-12-28 09:42 | PM.PREOP ---
Pre-operative Note COVID-19 COVID-19 status: Not tested Interval Note History & Physical reviewed/Exam performed by Physician: Yes Changes to H&P: No
[2023-12-28] MEDS: CEFAZOLIN 2 GM/100 ML PREMIX 100 ML IV (10:30)
--- NOTE | 2023-12-28 10:44 | SUR.OPER ---
Lithotomy on padded OR bed, head on pillow, arms secured on padded arm boards at <90 degrees abduction. Legs secured in padded yellow fins stirrups. Safety strap across abdomen. Upper body louise hugger in place.
--- NOTE | 2023-12-28 11:54 | P.OP_ITS ---
Procedure & Clinicians Procedure: 1. Aquablation 2. Transrectal ultrasound prostate 3. Transurethral resection of prostate with fulguration 4. Placement of Tobin catheter Same procedure as scheduled: Yes Indications: This 68-year-old male with a profound BPH and lower urinary tract symptoms failing medical management was found to be a excellent candidate for Aquablation. He wishes to proceed with Aquablation to eliminate his lower urinary tract symptoms and get off medication. He was found to have a prostate that was obstructing at 40 g. His other parameters were recorded in his history of present illness for his H&P. Surgeon: Federico Mendoza Click Yes if Unassisted: Yes Anesthesia Type: General Operative Notes Findings: Findings: Urethral meatus is normal urethra is normal along its length with the some perhaps large caliber nonobstructing strictures and normal mucosa, the sphincter as well coapted, prostate is obstructing bilobar no extension into the bladder perhaps a high bladder neck. The ureteral orifices in normal position with clear efflux in at the end of the procedure they were unaffected and had clear efflux. There was severe trabeculation and cellules no other abnormalities within the bladder. A 22 [place] three-way 30 cc hematuria catheter with 45 cc in the balloon was left in good position to continuous bladder irrigation and gravity drainage. Closure Type: not applicable Specimen(s): other (Prostate chips) Applied: catheter (Twenty-two [place] [address] hematuria catheter with 45 cc in the balloon this was sterile water.) Estimated Blood Loss (mL): 45 Blood products transfused: none Procedure in detail: Procedure in detail: After informed consent was obtained, the patient was identified brought to the operating room where he was placed in the supine position on the table. Once there anesthesia was induced and maintained. Ensuring an adequate level of anesthesia the patient was transitioned to the lithotomy position where he was prepped. After time-out ensuring an adequate level of anesthesia, administration of antibiotics and appropriate positioning the patient had 60 cc of ultrasound gel instilled within the rectum. This was followed by the ultrasound probe which he had been attached to the trust stepper which he had been mounted to the articulating arm and secured to the bed. The ultrasound probe was advanced under ultrasound guidance. It was aligned and confirmation made that it was centered in line with the prostate using both transverse and longitudinal or sagittal view. The level of the bladder neck verumontanum bladder outlet mid prostate were all identified. The prostate and previously been measured at 40 g. At this point the patient was draped and the 24 [place] aqua beam handpiece was inserted through the urethra prostate and end of the bladder under direct vision. As it was advanced on ultrasound and under direct vision in the level of the external sphincter verumontanum mid prostate bladder neck and bladder were all noted and marked. With the tip of the hand piece in the in the bladder it was secured to the handpiece articulating arm which he had been attached to the bed. At this point the alignment of the aqua beam handpiece and the truss probe were evaluated and they were found to be parallel and colinear. The aqua beam nozzle was confirmed to be centered and anterior to the bladder neck and then just into the bladder. The cystoscope with irrigation running was then backed up and retracted to visualize the verumontanum and external sphincter. The tip of the scope was then position just proximal to the external sphincter. The alignment of the truss and aqua beam handpiece was once again confirmed and that it was co linear in a line and then compression applied with a truss probe. At this point horizontal alignment of the handpiece water jet was performed and assured with the water jet exiting at the 3 and 9 o'clock position. The treatment zones were then planned using real-time ultrasound to visualize the anatomic landmarks of the prostate. In the transverse view in the mid largest cross-sectional view of the prostate the depth and radial angles of resection were defined and entered into the program. In the longitudinal or settled view the aqua beam nozzle was identified in his position marked and registered with the software. The length of resection was then defined to the tip of the scope. The treatment contours were then placed and adjusted to conform to the intended resection margins. And again this was done at the start of treatment bladder neck mid prostate and tip of scope or verumontanum. Again these were adjusted found to be a good plan ensuring that the patient was not going to move the Aquablation treatment was then started and followed the resection contour. This was done under ultrasound guidance and adjustments were made as needed on the fly. With the 1st pass completed a 2nd pass was performed making adjustments to the bladder neck depth of penetration and plan. The 2nd pass was completed without incident total Aquablation resection time approximately 6 minutes. With this completed the cystoscope was advanced to the tip of the aqua beam handpiece and the aqua beam handpiece was looked out under direct vision. A resectoscope was then inserted under direct vision through the urethra prostate and into the bladder. An Ellik evacuator was then employed to evacuate clots and to clear the bladder. The resecting element was then inserted the ureteral orifices identified and the bladder neck resected from the 3 to 9 o'clock position. Points of bleeding were controlled with the electrocautery. Anteriorly there was some bleeding which was controlled with the electrocautery. And at the level of the veru on the patient's right side there was a small amount of apical tissue which was resected. Again points of bleeding were controlled with the electrocautery at this point Ellik evacuator was employed to evacuate the prostate chips and any remaining clot. The resecting element was once again inserted and a few last points of bleeding were controlled hemostasis appeared to be good the prostatic fossa was widely patent under direct vision and under ultrasound visualization. With this completed and the bladder full the resecting scope was removed and the patient was noted to have a vigorous stream. Then with the aid of a cath guide the 22 [place] catheter was easily passed through the urethra and into the bladder particularly with the aid of the ultrasound. The balloon was filled with 45 cc of sterile water and placed to gravity drainage. The ultrasound probe was removed. The catheter was placed to continuous bladder irrigation hand irrigated it remained at most light pink to clear. At this point the patient was awakened having tolerated the procedure well to be transferred to the postanesthesia care unit. The three-way catheter had continuous bladder irrigation running and there were no complications. Total time truss the catheterization 49 minutes Complications: none Post-operative Condition: stable Disposition: PACU Plan for aftercare: Patient will be followed in the postanesthesia care unit in determination made whether to discharge directly or to bring in for continuous bladder irrigation overnight.
[2023-12-28] MEDS: PHENAZOPYRIDINE 100 MG TABLET 200 MG PO (12:14)
== END 2023-12-28 15:28 | disposition home or self-care (01) ==
PROVIDERS: PCP Physician Assistant; Referring Provider Urology; Visit Provider Urology
PROC: 0VT08ZZ Resection of Prostate, Via Natural or Artificial Opening Endoscopic (ICD-10-PCS; CPT 0421T; principal; 2023-12-28 09:45)
DX: N40.1 Benign prostatic hyperplasia with lower urinary tract symptoms (principal); R33.9 Retention of urine, unspecified; R39.198 Other difficulties with micturition
CPT/HCPCS: 0421T; C2596; J0330; J0690; J1100; J2405; J2704; J3010

== ENCOUNTER → 2023-12-30 15:04 | Outpatient (CLI) | payer OTHER, SELFPAY | PROVIDERS: PCP Physician Assistant; Visit Provider Urology | DX: N40.1 Benign prostatic hyperplasia with lower urinary tract symptoms (principal); N13.8 Other obstructive and reflux uropathy | CPT/HCPCS: 87086 ==

== ENCOUNTER → 2024-01-12 08:25 | Outpatient (CLI) | payer OTHER, SELFPAY | PROVIDERS: PCP Physician Assistant; Visit Provider Urology | DX: N40.1 Benign prostatic hyperplasia with lower urinary tract symptoms (principal); N13.8 Other obstructive and reflux uropathy | CPT/HCPCS: 87086 ==

== ENCOUNTER → 2024-02-04 09:18 | Outpatient (CLI) | payer OTHER, SELFPAY | PROVIDERS: PCP Physician Assistant; Visit Provider Urology | DX: R39.198 Other difficulties with micturition (principal) | CPT/HCPCS: 87086 ==